=== PATIENT | female | born 1995 | race African-American/Black ===

== ENCOUNTER 2021-09-27 18:09 | Day surgery (SDC) | payer BC, OTHER ==
[2021-09-27 20:50] VITALS: BMI 28.4
== END 2021-09-27 21:10 | disposition home or self-care (01) ==
LOC: CSHLD/OP 18:09
PROVIDERS: ATTEND Emergency Medicine
DX: O99.891 Other specified diseases and conditions complicating pregnancy (principal); O26.873 Cervical shortening, third trimester; O47.03 False labor before 37 completed weeks of gestation, third trimester; R10.30 Lower abdominal pain, unspecified; Z3A.34 34 weeks gestation of pregnancy; Z87.59 Personal history of other complications of pregnancy, childbirth and the puerperium; Z79.890 Hormone replacement therapy; Z98.890 Other specified postprocedural states; Z79.899 Other long term (current) drug therapy

== ENCOUNTER 2021-10-10 13:15 | Emergency (ER) | payer OTHER ==
[2021-10-10 14:17] LABS: #Eosinphils 0.1 10x3/uL (0.0-0.5); #Monocytes 0.8 10x3/uL (0.0-1.1); #Neutrophils 5.8 10x3/uL (1.5-8.4); %Basophils 0.4 % (0.0-2.0); %Eosinophils 0.7 % (0.0-6.0); %Lymphocytes 18.5 % (18.0-47.0); %Monocytes 9.9 % (0.0-10.0); %Neutrophils 69.5 % (40.0-75.0); Hemoglobin 12.6 g/dL (12.0-15.5); Mean Corpuscular Hemoglobin 26.4 pg (27.0-33.0); Mean Corpuscular Volume 84.9 fl (81.6-98.3); Platelet Count 206 10x3/uL (150-450); RBC Distribution Width 15.3 % (11.5-14.5); Red Blood Cell (RBC) Count 4.78 10x6/uL (3.90-5.03); White Blood Cell (WBC) Count 8.3 10x3/uL (3.5-10.5)
[2021-10-10 14:28] LABS: ALT (SGPT) 12 U/L (8-55); AST (SGOT) 13 U/L (5-34); Albumin 3.7 g/dL (3.5-5.0); Alkaline Phosphatase 199 U/L (40-110); Anion Gap 12 mmol/L (10-20); BUN (Urea Nitrogen) Less than 4 mg/dL (7.0-18.7); Bilirubin, Total 0.2 mg/dL (0.2-1.2); Calc. Creatinine Clearance 0 mL/min (70-130); Calcium 8.7 mg/dL (7.8-10.44); Carbon Dioxide 20 mmol/L (22-29); Chloride 109 mmol/L (98-107); Globulin 4.1 g/dL (2.4-3.5); Glucose 83 mg/dL (70-105); Potassium 3.7 mmol/L (3.5-5.1); Protein, Total 7.8 g/dL (6.0-8.3); Sodium 137 mmol/L (136-145)
[2021-10-10 15:18] LABS: Bilirubin Neg (Negative); Blood, Urine Negative (Negative); Clarity Slightly Cloudy (Clear); Glucose, Urine (Dipstick) Normal (Negative); Ketone, Urine 5 mg/dL (Negative); Leukocyte 100 (Negative); Nitrite Negative (Negative); Protein, Urine (Dipstick) Negative (Neg-Trace); Specific Gravity, Urine 1.005 (1.002-1.036); Urobilinogen Normal mg/dL (Less than 2)
[2021-10-10 15:27] LABS: Bacteria/HPF 4+ HPF (None Seen)
[2021-10-10 15:28] LABS: RBC/HPF 0-3 HPF (0-3)
[2021-10-10 15:29] LABS: Transitional Epithelial 0-3 HPF (None Seen)
[2021-10-10 17:06] LABS: Troponin I Less than 0.010 ng/mL (< 0.028)
== END 2021-10-10 15:19 | disposition home or self-care (01) ==
LOC: CSHERS 13:15
DX: O99.891 Other specified diseases and conditions complicating pregnancy (principal); N89.8 Other specified noninflammatory disorders of vagina; R10.2 Pelvic and perineal pain; R06.02 Shortness of breath; Z3A.36 36 weeks gestation of pregnancy
CPT/HCPCS: 71045; 80053; 81003; 81015; 83880; 84484; 85025; 87086; 93005

== ENCOUNTER 2021-10-10 15:34 | Day surgery (SDC) | payer OTHER ==
[2021-10-10 15:56] VITALS: BMI 29.2
[2021-10-10] MEDS ORDERED: hydrALAZINE 20 MG/ML VIAL SLOW IVP PRN (16:03)
[2021-10-10] MEDS ORDERED: Fosfomycin 3 GM/Packet PO SCH (17:00)
== END 2021-10-10 18:22 | disposition home or self-care (01) ==
LOC: CSHLD/OP 15:34
PROVIDERS: ATTEND Student in an Organized Health Care Education/Training Program
DX: O99.891 Other specified diseases and conditions complicating pregnancy (principal); O26.873 Cervical shortening, third trimester; O47.03 False labor before 37 completed weeks of gestation, third trimester; O23.43 Unspecified infection of urinary tract in pregnancy, third trimester; R06.02 Shortness of breath; Z3A.36 36 weeks gestation of pregnancy; Z87.59 Personal history of other complications of pregnancy, childbirth and the puerperium; Z98.890 Other specified postprocedural states; Z79.899 Other long term (current) drug therapy
CPT/HCPCS: 71045; 80053; 81003; 81015; 83880; 84484; 85025; 87086; 93005; 99283

== ENCOUNTER 2021-10-25 12:46 | Inpatient (IN) | payer OTHER ==
[~2021-10-25 12:46] MED LIST: Bupivacaine 0.25% HCL 30 ML VIAL ONE; Terbutaline Sulfate 1 MG/ML VIAL ONE
[2021-10-25 14:55] LABS: Fetal Membranes Rupture RUPTURE DETECTED (No Rupture)
[2021-10-25] MEDS ORDERED: Ibuprofen 800 MG TAB PO PRN (15:08)
[2021-10-25] MEDS ORDERED: Ondansetron PF 4 MG/2 ML Vial IVP PRN (15:08)
[2021-10-25] MEDS ORDERED: hydrALAZINE 20 MG/ML VIAL SLOW IVP PRN (15:08)
[2021-10-25] MEDS ORDERED: Lidocaine 1% (PF) 30 ML VIAL SC PRN (15:08)
[2021-10-25] MEDS ORDERED: Promethazine HCl 25 MG/ML VIAL IM PRN (15:08)
[2021-10-25] MEDS ORDERED: Acetaminophen/Codeine 30-300mg Tablet PO PRN (15:08)
[2021-10-25] MEDS ORDERED: NS w/ Oxytocin 30 units 500 ML IVPB SCH (15:15)
[2021-10-25] MEDS ORDERED: NS w/ Oxytocin 30 units 500 ML IV SCH (15:15)
[2021-10-25 15:50] VITALS: BMI 30.4
[2021-10-25 16:18] LABS: Hemoglobin 12.6 g/dL (12.0-15.5); Mean Corpuscular HGB CONC 32.4 g/dL (32.0-36.0); Mean Corpuscular Hemoglobin 26.9 pg (27.0-33.0); Mean Corpuscular Volume 82.9 fl (81.6-98.3); Mean Platelet Volume 12.2 fl (7.4-10.4); Platelet Count 203 10x3/uL (150-450); RBC Distribution Width 14.9 % (11.5-14.5); Red Blood Cell (RBC) Count 4.69 10x6/uL (3.90-5.03); White Blood Cell (WBC) Count 8.7 10x3/uL (3.5-10.5)
[2021-10-25 16:39] LABS: Syphilis Antibody Nonreactive (Nonreactive)
[2021-10-25] MEDS: Lactated Ringer's 1,000 ML IV SCH ×2 (16:45→19:50)
[2021-10-25 17:11] LABS: Hep B Surf Ag Non-Reactive S/CO (NonReactive)
[2021-10-25] MEDS ORDERED: Misoprostol 100 MCG TAB ONE (17:12)
[2021-10-25] MEDS ORDERED: Misoprostol 100 MCG TAB PO SCH (17:15)
[2021-10-25 17:21] LABS: HBSAg Index 0.41 S/CO (0-0.99)
[2021-10-25] MEDS ORDERED: Acetaminophen 325 MG TAB PO PRN (17:45)
[2021-10-25] MEDS: Butorphanol Tartrate 1 MG/ML VIAL SLOW IVP PRN ×3 (20:12→23:28)
[2021-10-26] MEDS: Lactated Ringer's 1,000 ML IV SCH (03:38)
[2021-10-26] MEDS ORDERED: Fentanyl 2 mcg/Bup 0.1% Cadd 100 ML ONE (10:38)
[2021-10-26] MEDS ORDERED: Hydrocerin (Eucerin) Cream 120 gm Jar TOP PRN (11:56)
[2021-10-26] MEDS ORDERED: Naloxone HCl 0.4 mg/ml Vial IVP PRN ×2 (11:56)
[2021-10-26] MEDS ORDERED: Promethazine HCl 25 MG/ML VIAL IM PRN (11:56)
[2021-10-26] MEDS ORDERED: Lactated Ringer's 500 ML IV PRN (11:56)
[2021-10-26] MEDS ORDERED: Ondansetron PF 4 MG/2 ML Vial IVP PRN (11:56)
[2021-10-26] MEDS ORDERED: Acetaminophen 325 MG TAB PO PRN (11:56)
[2021-10-26] MEDS ORDERED: ePHEDrine Sulfate 50 MG/10 ML VIAL SLOW IVP PRN (11:56)
[2021-10-26] MEDS ORDERED: diphenhydrAMINE 50 MG/ML VIAL IVP PRN (11:56)
[2021-10-26] MEDS ORDERED: Communication Order-Pharmacy FS SCH (12:00)
[2021-10-26] MEDS ORDERED: Fentanyl 2 mcg/Bupivacaine 0.1% Cassette 100 ML EPIDURAL SCH (12:00)
[2021-10-26 16:13] LABS: SARS-CoV-2 PCR by NAA Not Detected (NotDetected)
[2021-10-26] MEDS ORDERED: hydrALAZINE 20 MG/ML VIAL SLOW IVP PRN (16:42)
[2021-10-26] MEDS ORDERED: Milk Of Magnesia 30 ML UDCUP PO PRN (16:42)
[2021-10-26] MEDS ORDERED: Boostrix 0.5 ML (Tdap) VIAL IM ONE (16:42)
[2021-10-26] MEDS ORDERED: Bisacodyl 10 MG SUPP PR PRN (16:42)
[2021-10-26] MEDS: Ibuprofen 800 MG TAB PO SCH (21:39)
[2021-10-26] MEDS: Docusate Calcium (SURFAK) 240 MG CAP PO SCH (21:39)
[2021-10-27] MEDS: Ibuprofen 800 MG TAB PO SCH ×3 (05:43→21:51)
[2021-10-27] MEDS: Ferrous Sulfate 325 MG TAB PO SCH ×3 (07:34→16:37)
[2021-10-27] MEDS: Lactated Ringer's 1,000 ML IV SCH (07:40)
[2021-10-27] MEDS: Docusate Calcium (SURFAK) 240 MG CAP PO SCH ×2 (09:50→21:51)
[2021-10-28] MEDS: Ferrous Sulfate 325 MG TAB PO SCH (07:55)
[2021-10-28] MEDS: Docusate Calcium (SURFAK) 240 MG CAP PO SCH (08:27)
[2021-10-28] MEDS: Ibuprofen 800 MG TAB PO SCH (08:27)
[2021-10-28 08:33] VITALS: BP 128/76; TEMP 97.8
== END 2021-10-28 11:50 | disposition home or self-care (01) | DRG 807 ==
LOC: CSHLD/OP 12:46 → CSHLD 12:47 → CSHPP 10-26 18:45
PROVIDERS: ADMIT Family Medicine; ATTEND Family Medicine
PROC: 10E0XZZ Delivery of Products of Conception, External Approach (ICD-10-PCS; principal; 2021-10-26)
PROC: 0HQ9XZZ Repair Perineum Skin, External Approach (ICD-10-PCS; 2021-10-26)
DX: O34.33 Maternal care for cervical incompetence, third trimester (principal); Z37.0 Single live birth; Z3A.38 38 weeks gestation of pregnancy; Z90.721 Acquired absence of ovaries, unilateral; O70.0 First degree perineal laceration during delivery; Z20.822 Contact with and (suspected) exposure to COVID-19
CPT/HCPCS: 51702; 84112; 85027; 86780; 86850; 86900; 86901; 87340; 87480; 87510; 87660; 99285; J0595; J2590; J3105; J7120; S0020; U0003; U0005

== ENCOUNTER 2022-09-24 13:49 | Emergency (ER) | payer OTHER | END 2022-09-24 14:08 | disposition left against medical advice (07) | LOC: CSHERS 13:49 | DX: Z53.21 Procedure and treatment not carried out due to patient leaving prior to being seen by health care provider (principal) ==

== ENCOUNTER 2023-03-20 11:51 | Day surgery (SDC) | payer OTHER ==
[2023-03-20 12:56] VITALS: BMI 33.0
[2023-03-20 13:17] LABS: Fetal Membranes Rupture No Membranes Rupture (No Rupture)
[2023-03-20] MEDS ORDERED: hydrALAZINE 20 MG/ML VIAL SLOW IVP PRN (14:15)
== END 2023-03-20 14:55 | disposition home or self-care (01) ==
LOC: CSHLD/OP 11:51
PROVIDERS: ATTEND Obstetrics & Gynecology
DX: Z03.71 Encounter for suspected problem with amniotic cavity and membrane ruled out (principal); O34.43 Maternal care for other abnormalities of cervix, third trimester; N88.8 Other specified noninflammatory disorders of cervix uteri; Z79.899 Other long term (current) drug therapy; Z90.721 Acquired absence of ovaries, unilateral; Z3A.36 36 weeks gestation of pregnancy
CPT/HCPCS: 84112; 99284

== ENCOUNTER 2023-04-01 13:42 | Day surgery (SDC) | payer OTHER ==
[2023-04-01] MEDS ORDERED: Acetaminophen 325 MG TAB PO SCH (15:00)
[2023-04-01 17:55] LABS: Fetal Membranes Rupture No Membranes Rupture (No Rupture)
== END 2023-04-01 18:41 | disposition home or self-care (01) ==
LOC: CSHLD/OP 13:42
PROVIDERS: ATTEND Family Medicine
DX: O26.893 Other specified pregnancy related conditions, third trimester (principal); R10.30 Lower abdominal pain, unspecified; O99.513 Diseases of the respiratory system complicating pregnancy, third trimester; K21.9 Gastro-esophageal reflux disease without esophagitis; O41.03X0 Oligohydramnios, third trimester, not applicable or unspecified; Z79.899 Other long term (current) drug therapy; W01.0XXA Fall on same level from slipping, tripping and stumbling without subsequent striking against object, initial encounter; Z3A.38 38 weeks gestation of pregnancy
CPT/HCPCS: 76819; 84112; 87480; 87510; 87660